=== PATIENT | female | born 1990 | race Caucasian/White ===

== ENCOUNTER 2021-03-06 08:27 | Inpatient (IN) ==
[2021-03-06] MEDS ORDERED: Lactated Ringers 1000 ml BAG 1,000 ML IV ONE ×2 (09:33→10:43)
[2021-03-06] MEDS ORDERED: Oxytocin in LR 20 UNITS/1,000 ML BAG IVPB ONE (09:54)
[2021-03-06 09:58] LABS: ABS Basophils 0.1 10^3/ul (0-0.2); ABS Lymphocytes 1.7 10^3/ul (1.0-4.8); ABS Monocytes 1.3 10^3/ul (0-0.8); ABS Neutrophils 10.2 10^3/ul (1.5-7.7); Eosinophil % 0.3 %; Hematocrit 35 % (35-47); Hemoglobin 11.9 g/dL (12.0-16.0); Lymphocyte % 12.9 %; Mean Corpuscular HGB Conc 34 g/dL (31-36); Mean Corpuscular Hemoglobin 32 pg (27-31); Mean Corpuscular Volume 96 fL (80-97); Mean Platelet Volume 8.7 fL (7.4-10.4); Platelet Count 218 10^3/uL (150-450); Red Blood Count 3.67 10^6 /uL (3.70-4.87); Red Cell Distribution Width 14 % (10-15); White Blood Count 13.4 10^3/uL (3.5-10.8)
[2021-03-06] MEDS ORDERED: OBEPIDURAL 250 ML EPIDURAL ONE (10:07)
[2021-03-06] MEDS ORDERED: Bupivacaine 0.25% SDV PF 10 ML VIAL INJ ONE (10:08)
[2021-03-06 10:38] LABS: Rapid COVID-19 Molecular Undetected (Undetected)
[2021-03-06] MEDS ORDERED: EPHEDrine (Pressors) 50 MG/ML VIAL IV PUSH PRN ×2 (10:43)
[2021-03-06] MEDS ORDERED: Sodium Citrate/Citric Acid LIQ 15 ML UDC PO PRN (10:43)
[2021-03-06] MEDS ORDERED: Phenylephrine 40 mcg/mL 10mL (400mcg) SYRINGE IV PUSH PRN ×2 (10:43)
[2021-03-06] MEDS ORDERED: OBEPIDURAL 250 ML EPIDURAL SCH (11:00)
[2021-03-06] MEDS ORDERED: Lactated Ringers 1000 ml BAG 1,000 ML IV SCH ×2 (11:00→15:00)
[2021-03-06 11:24] LABS: Urine Appearance Cloudy; Urine Bilirubin Negative (Negative); Urine Blood 1+ (Negative); Urine Color Amber; Urine Glucose Negative (Negative); Urine Ketones 1+ (Negative); Urine Nitrite Negative (Negative); Urine Protein Negative (Negative); Urine Specific Gravity 1.013 (1.002-1.030); Urine Urobilinogen Negative (Negative)
[2021-03-06 11:29] LABS: Urine Bacteria Absent (Absent); Urine Red Blood Cell 1+(3-5/hpf) (Absent); Urine Squamous Epithelial Cell Present (Absent); Urine White Blood Cell Absent (Absent)
[2021-03-06 11:32] LABS: Urine Benzodiazepine Screen None Detected (None Detect); Urine Cannabinoids Screen None Detected (None Detect); Urine Opiates Screen None Detected (None Detect)
[2021-03-06] MEDS ORDERED: Oxytocin in LR 20 UNITS/1,000 ML BAG IVPB SCH (13:40)
[2021-03-06] MEDS ORDERED: Lidocaine 1% VIAL 10 MG/ML VIAL ONE (17:57)
[2021-03-06] MEDS: Dibucaine 1% OINT 28.35 GM TUBE PR PRN (18:22)
[2021-03-06] MEDS: Witch Hazel PAD JAR TOPICAL PRN (18:22)
[2021-03-07 06:35] LABS: ABS Basophils 0.1 10^3/ul (0-0.2); ABS Lymphocytes 1.9 10^3/ul (1.0-4.8); ABS Monocytes 1.3 10^3/ul (0-0.8); ABS Neutrophils 11.4 10^3/ul (1.5-7.7); Eosinophil % 0.3 %; Hematocrit 31 % (35-47); Hemoglobin 10.6 g/dL (12.0-16.0); Lymphocyte % 13.1 %; Mean Corpuscular HGB Conc 34 g/dL (31-36); Mean Corpuscular Hemoglobin 34 pg (27-31); Mean Corpuscular Volume 97 fL (80-97); Mean Platelet Volume 8.4 fL (7.4-10.4); Platelet Count 203 10^3/uL (150-450); Red Blood Count 3.17 10^6 /uL (3.70-4.87); Red Cell Distribution Width 14 % (10-15); White Blood Count 14.7 10^3/uL (3.5-10.8)
[2021-03-07] MEDS: Dibucaine 1% OINT 28.35 GM TUBE PR PRN (08:32)
[2021-03-07] MEDS: Witch Hazel PAD JAR TOPICAL PRN (08:32)
[2021-03-08 08:45] VITALS: BP 128/73
[2021-03-08] MEDS: Witch Hazel PAD JAR TOPICAL PRN (09:52)
[2021-03-08] MEDS: Dibucaine 1% OINT 28.35 GM TUBE PR PRN (09:52)
== END 2021-03-08 14:03 | disposition home or self-care (01) | DRG 560 ==
LOC: MCHOBOUT 08:27 → MCHOB 09:33
PROVIDERS: ADMIT Midwife; ATTEND Midwife